=== PATIENT | female | born 1995 | race Caucasian/White ===

== ENCOUNTER → 2017-08-11 11:54 | Outpatient (CLI) | payer OTHER, SELFPAY ==
[2017-08-11 16:38] LABS: Chlamydia Trachomatis by PCR Negative (Negative); Neisserai gonorrhoeae by PCR Negative (Negative); Probe Check PASS; Sample Adequacy Control PASS; Specimen Processing Control PASS
== END ==
PROVIDERS: Visit Provider Obstetrics & Gynecology
DX: Z11.3 Encounter for screening for infections with a predominantly sexual mode of transmission (principal)
CPT/HCPCS: 87491; 87591

== ENCOUNTER 2018-08-19 09:05 | Inpatient (IN) | payer MEDICAID, SELFPAY ==
[2017-08-11 08:25] VITALS: BMI 26.5
[2018-08-19] MEDS: 0.9% Saline Lock 10 ML Syringe IV ×2 (09:45→18:05)
[2018-08-19 10:21] LABS: Hematocrit 39.1 % (37-47); Hemoglobin 13.5 g/dl (12.0-15.0); Mean Corp Hgb Conc 34.5 g/gl (32-36); Mean Corpuscular Hgb 31.5 pg (27.0-32.0); Mean Corpuscular Volume 91.4 fL (81-99); Mean Platelet Vol. 11.2 fl (6.2-12.0); Platelet Count 178 K/mm3 (150-450); RBC Distribution Width CV 12.3 % (11.6-14.6); RBC Distribution Width SD 40.5 fl (35.1-43.9); Red Blood Count 4.28 M/mm3 (4.2-5.4)
[2018-08-19 10:23] LABS: Scan Indicated on CBC? Y/N NO
[2018-08-19 10:40] LABS: Amphetamine Urine VISTA NEGATIVE (<1000 ng/mL); Barbiturate Urine VISTA NEGATIVE (< 200 ng/mL); Benzodiazepine Urine VISTA NEGATIVE (< 200 ng/mL); Cocaine Urine VISTA NEGATIVE (< 300 ng/mL); Ecstacy Urine VISTA NEGATIVE (< 500 ng/mL); Methadone Urine VISTA NEGATIVE (< 300 ng/mL); PCP Urine VISTA NEGATIVE (< 25 ng/mL); THC Urine VISTA NEGATIVE (< 50 ng/mL); Vista UDS pH Range 7
[2018-08-19 11:06] VITALS: BMI 34.0
--- NOTE | 2018-08-19 12:42 | PCM.HP.OB ---
- Problem List (1) Rh negative state in antepartum period Status: Chronic (2) History of marijuana use Status: Chronic (3) Echogenic focus of heart of fetus affecting antepartum care of mother, single gestation Status: Resolved History Date of Admission: 08/19/18 Final SONIA: 08/18/18 Final SONIA Source: [place] <20 weeks Gestational age: 40 Weeks and 1 Days History of this : This is a 23 year-old, G [1], P [0], at 40 weeks gestational age presenting to labor reporting regular strong contractions since last night, reports now contractions q 4-5 minutes and strong downward pressure. Patient at admission per nursing exam was /-2 with BBOW. Patient's care was unremarkable, started at 5 weeks x 14 visits. Medical History: Medical History (Last Updated 08/11/17 @ 08:28 by Tisha Mckenna) Asthma J45.909 Surgical History: Surgical History (Last Updated 08/11/17 @ 08:29 by Tisha Mckenna) History of appendectomy Z98.890, Z90.49 History of tonsillectomy and adenoidectomy Z98.890 Allergies Sulfa (Sulfonamide Antibiotics) Allergy (Verified 05/31/14 15:02) Unknown Home Medications: Home Medications Vits [Prenatabs FA] 1 tablet PO DAILY 08/19/18 Smoking Status: Never smoker Alcohol: None Number of Fetus(es): 1 Heart Tracin by auscultation, no decels heard during or after contraction. Patient had Category I FHT on admission to hospital. TOCO Analysis: Ctx palpable moderate to strong 4-5 minutes, lasting 1 minute in length History Past Pregnancies: Past Pregnancies Delivery Date Name GA/Weeks Outcome Route Weight Infant Gender Labor Length Anesthesia Delivery Location Provider FOB Labs: GBS = Neg, Urine Tox + cannabinoids in 1st trimester - negative on admission to hospital, 1 hour GCT = 81, Trich = Neg, GC/CT = Neg/Neg, Syphilis = NR, Rubella = Immune, HepBsAg = Neg, HIV = NR, CF Screen= Neg, Urine Culture = Neg, Pap = Neg, CBC = WNL x 2 Expected Delivery Method: Spontaneous Vaginal Describe any other labor & delivery plans:: Planning NCB Number of Visits: 14 Review of Systems Constitutional: Denies: Chills, Fever, Weight Change HEENT: Denies: Head Aches, Sinus Congestion, Sinus Drainage Cardiovascular: Denies: Chest Pain, Palpitations Respiratory: Denies: Cough, Shortness of breath at rest, Sputum production Gastrointestinal: Denies: Abdominal Pain, Nausea, Vomiting Genitourinary: Denies: Dysuria Gynecological: Denies: Vaginal bleeding, Vaginal discharge, Vaginal itching Musculoskeletal: Denies: Joint Pain, Joint Tenderness Skin: Denies: Rash, Wounds Neurological: Denies: Numbness, Tingling, Focal weakness Psychiatric: Denies: Anxiety, Depression, Homicidal Ideations, Suicidal Ideations Hematologic/ Lymphatic: Denies: Easy Bruising, Easy Bleeding Physical Exam Vitals: See Nursing Note - Normotensive and Afebrile General: Alert, Oriented x3, No apparent distress HEENT: Atraumatic, Normocephalic. Negative for: Thyromegaly, Lymphadenopathy Cardiovascular: Regular rate, Regular Rhythm Lungs: Normal air movement Abdomen: Soft, Non Tender, Gravid, Appropriate for Gestational Age - EFW = 8# Neurological: Deep Tendon Reflexes 2+/4 and Symmetrical, Neuro grossly intact RELIGION INSTRUCTOR: Normal external genitalia. Negative for: Vulvar lesions Estimated gestational size: Appropriate for gestational size Presentation: Cephalic - ROP by Jose Ramon's and Asynclitic Cervix Dilation (cm): 6 - IBOW Station: -2 Effacement (%): 90 Assessment/Plan All Active Problems (Last Updated 08/11/17 @ 08:28 by Tisha Mckenna) Echogenic focus of heart of fetus affecting antepartum care of mother, single gestation (Resolved) This is a 23 year-old, G [1], P [0], at 40 weeks gestational age, Active Labor, Category I FHT P: 1) Expectant Management 2) Dr. Yepez OB back-up aware of admission and is in agreement of plan 3) Reassess cervix PRN with change in maternal or status Violeta Villa APRN-ANETA
--- NOTE | 2018-08-19 16:43 | PN.OBGYN_ITS ---
Subjective: Patient laboring well, reports ctx are intensifying and getting longer. Patient requests SVE at this time. Discussed option for AROM also at this time if minimal cervical change noted from last exam. Objective: FHT baseline 125, moderate variability, + accels, no decels noted Ctx q 2-5 minutes, palpate moderately strong SVE = unchaged, AROM clear fluid. SVE = 7/90/-1 after AROM - Physical Exam General: Alert, Oriented x3, Cooperative HEENT: Atraumatic, Normocephalic Neck: Supple Lungs: Normal air movement Cardiovascular: Regular rate, Regular Rhythm Abdomen: Soft, Non Tender, Gravid Extremities: No edema, Capillary Refill Less than 3 Seconds Skin: No rashes, No breakdown Musculoskeletal: No Tenderness to Palpation of Joints or Extremities Neurological: Cranial nerves II-XII grossly intact Psych/Mental Status: Normal Affect, Appropriate Weight: 192 lb 0.362 oz Body Mass Index (BMI) 34.0 Laboratory Tests Past 24 Hrs 08/19/18 08/19/18 08/19/18 09:40 09:45 09:45 WBC 13.0 H RBC 4.28 Hgb 13.5 Hct 39.1 MCV 91.4 MCH 31.5 MCHC 34.5 RDW 12.3 RDW Differential 40.5 Plt Count 178 MPV 11.2 Urine Opiates Screen NEGATIVE Urine Methadone Screen NEGATIVE Ur Barbiturates Screen NEGATIVE Ur Phencyclidine Scrn NEGATIVE Ur Amphetamines Screen NEGATIVE U Methamphetamin-MDMA NEGATIVE U Benzodiazepines Scrn NEGATIVE Urine Cocaine Screen NEGATIVE U Cannabinoids Screen NEGATIVE Ur Drug Screen Comment Blood Type O NEGATIVE Antibody Screen NEGATIVE Medical Necessity - Tobacco Use Smoking Status: Never smoker Assessment/Plan All Active Problems (Last Updated 08/11/17 @ 08:28 by Tisha Mckenna) Echogenic focus of heart of fetus affecting antepartum care of mother, single gestation (Resolved) 23 y/o @ 40+1 weeks, Category I FHT, Transition Stage of Labor P: 1) Encourage PO hydration and position changes 2) Dr. Yepez updated of patient status 3) Anticipate Violeta Villa COSTUME SHOP MANAGER-CNM
[2018-08-19] MEDS: Lactated Ringers 1,000 ML 50 ML IV (18:07)
--- NOTE | 2018-08-19 18:12 | PCM.PN.OB ---
Subjective: Patient grimacing and vocalizing during contractions. Requesting an epidural at this time. Patient and her family report that contractions have gotten more regular and closer together and that they feel back to back. Patient also reporting more pelvic pressure currently, requesting repeat vaginal exam at this time. Objective: FHT baseline 120, moderate variability, + accels, occasional variable decels Ctx q 2-3 minutes, palpate strong to contractions SVE = 7/90/0, JUANY by Jose Ramon's and SVE exam - Physical Exam General: Alert, Oriented x3, Cooperative Lungs: Normal air movement Cardiovascular: Regular rate, Regular Rhythm Abdomen: Soft, Non Tender, Gravid - Baby now JUANY by Jose Ramon's Extremities: No edema, Capillary Refill Less than 3 Seconds Skin: No rashes, No breakdown Musculoskeletal: No Tenderness to Palpation of Joints or Extremities Neurological: Cranial nerves II-XII grossly intact, Deep Tendon Reflexes 2+/4 and Symmetrical Psych/Mental Status: Normal Affect, Appropriate Weight: 192 lb 0.362 oz Body Mass Index (BMI) 34.0 Laboratory Tests Past 24 Hrs 08/19/18 08/19/18 08/19/18 09:40 09:45 09:45 WBC 13.0 H RBC 4.28 Hgb 13.5 Hct 39.1 MCV 91.4 MCH 31.5 MCHC 34.5 RDW 12.3 RDW Differential 40.5 Plt Count 178 MPV 11.2 Urine Opiates Screen NEGATIVE Urine Methadone Screen NEGATIVE Ur Barbiturates Screen NEGATIVE Ur Phencyclidine Scrn NEGATIVE Ur Amphetamines Screen NEGATIVE U Methamphetamin-MDMA NEGATIVE U Benzodiazepines Scrn NEGATIVE Urine Cocaine Screen NEGATIVE U Cannabinoids Screen NEGATIVE Ur Drug Screen Comment Blood Type O NEGATIVE Antibody Screen NEGATIVE Medical Necessity - Tobacco Use Smoking Status: Never smoker Assessment/Plan All Active Problems (Last Updated 08/11/17 @ 08:28 by Tisha Mckenna) Echogenic focus of heart of fetus affecting antepartum care of mother, single gestation (Resolved) 23 y/o @ 40+1 weeks, Transition Stage of Labor, Category I-II FHT P: 1) Continue present management 2) Epidural on request - encourage position changes and PO hydration at this time while IV fluid bolus infuses 3) Anticipate Violeta Villa APRN-ANETA
[2018-08-19] MEDS: fentaNYL-bupivacaine (epidural) 100 ML BAG EPIDURAL ×2 (19:00→23:06)
--- NOTE | 2018-08-19 20:09 | PCM.PROGNOTE ---
Subjective: Patient is comfortable with her epidural. She reports no issues at this time. Desires a repeat cervical exam now. Objective: FHT baseline 125, moderate variability, early decels noted with most contractions. Rare variable decel also noted. + accels. Ctx q 2-3 minutes, strong to palpation, lasting 60-90 seconds long SVE = 9/95/0 - Physical Exam General: Alert, Oriented x3, Cooperative Lungs: Normal air movement Abdomen: Soft, Non Tender, Gravid Extremities: No edema Neurological: Cranial nerves II-XII grossly intact, Deep Tendon Reflexes 2+/4 and Symmetrical Psych/Mental Status: Normal Affect, Appropriate Weight: 192 lb 0.362 oz Body Mass Index (BMI) 34.0 Laboratory Tests Past 24 Hrs 08/19/18 08/19/18 08/19/18 09:40 09:45 09:45 WBC 13.0 H RBC 4.28 Hgb 13.5 Hct 39.1 MCV 91.4 MCH 31.5 MCHC 34.5 RDW 12.3 RDW Differential 40.5 Plt Count 178 MPV 11.2 Urine Opiates Screen NEGATIVE Urine Methadone Screen NEGATIVE Ur Barbiturates Screen NEGATIVE Ur Phencyclidine Scrn NEGATIVE Ur Amphetamines Screen NEGATIVE U Methamphetamin-MDMA NEGATIVE U Benzodiazepines Scrn NEGATIVE Urine Cocaine Screen NEGATIVE U Cannabinoids Screen NEGATIVE Ur Drug Screen Comment Blood Type O NEGATIVE Antibody Screen NEGATIVE Medical Necessity - Tobacco Use Smoking Status: Never smoker Assessment/Plan All Active Problems (Last Updated 08/11/17 @ 08:28 by Tisha Mckenna) Echogenic focus of heart of fetus affecting antepartum care of mother, single gestation (Resolved) 23 y/o @ 40+1 weeks, Transition Stage of Labor, Category II FHT 1) Anticipate 2) Encourage position changes 3) Dr. Yepez updated on patient status Violeta Villa APRN-ANETA
--- NOTE | 2018-08-19 21:49 | PCM.PN.OB ---
Subjective: Patient remains comfortable with epidural. More frequent variable decels noted - decision made to recheck cervix at this time. Objective: FHT baseline 120, moderate variability, + accels, early decels and occasional moderate variable decels with ctx Ctx q 2-5 minutes, palpate moderately strong SVE = 10/100/0 to +1 - Physical Exam General: Alert, Oriented x3 Lungs: Normal air movement Abdomen: Soft, Non Tender Extremities: No edema Weight: 192 lb 0.362 oz Body Mass Index (BMI) 34.0 Laboratory Tests Past 24 Hrs 08/19/18 08/19/18 08/19/18 09:40 09:45 09:45 WBC 13.0 H RBC 4.28 Hgb 13.5 Hct 39.1 MCV 91.4 MCH 31.5 MCHC 34.5 RDW 12.3 RDW Differential 40.5 Plt Count 178 MPV 11.2 Urine Opiates Screen NEGATIVE Urine Methadone Screen NEGATIVE Ur Barbiturates Screen NEGATIVE Ur Phencyclidine Scrn NEGATIVE Ur Amphetamines Screen NEGATIVE U Methamphetamin-MDMA NEGATIVE U Benzodiazepines Scrn NEGATIVE Urine Cocaine Screen NEGATIVE U Cannabinoids Screen NEGATIVE Ur Drug Screen Comment Blood Type O NEGATIVE Antibody Screen NEGATIVE Medical Necessity - Tobacco Use Smoking Status: Never smoker Assessment/Plan All Active Problems (Last Updated 08/11/17 @ 08:28 by Tisha Mckenna) Echogenic focus of heart of fetus affecting antepartum care of mother, single gestation (Resolved) 23 y/o @ 40+1 weeks, Second Stage of Labor P: 1) Start pushing with patient at this time 2) Anticipate Violeta Villa APRN-RAFAM
[2018-08-19] MEDS: Oxytocin 30 units/NS 500 ml 30 UNITS/500 ML IV.SOLN 334 UNITS IV (23:40)
--- NOTE | 2018-08-20 00:07 | CPS ---
Critical results for Cord ABG read to CLARISSA Colon.
[2018-08-20] MEDS: Methylergonovine 0.2 MG/ML Ampul IM (00:08)
[2018-08-20] MEDS: Oxytocin 30 units/NS 500 ml 30 UNITS/500 ML IV.SOLN 167 UNITS IV (00:10)
--- NOTE | 2018-08-20 00:39 | PCM.OB.VAG ---
- Problem List (1) Rh negative state in antepartum period Status: Chronic (2) History of marijuana use Status: Chronic (3) Echogenic focus of heart of fetus affecting antepartum care of mother, single gestation Status: Resolved Vaginal Delivery Maternal Presentation: Active Labor Amniotic Membrane Rupture Type: Artificial Amniotic Fluid Description: Clear - terminal meconium noted after delivery Final SONIA: 08/18/18 Gestational age: 40 Weeks and 2 Days doctor who attended delivery (if requested by OB): Rafaela Collier Date of Procedure: 08/19/18 Pre-Operative Diagnosis: Active Labor Post-Operative Diagnosis: Viable Girl, Shoulder Dystocia Anesthesiologist: Erna Mullen Type of Anesthesia: Epidural Description of Procedure: Patient found to be complete/+1. Trial of pushing started and patient pushed well to . head delivered 2332 and delay of shoulders and turtle sign noted. At time of head delivery meconium noted behind head and loose nuchal cord noted. Additional personnel and pediatric physician called to bedside in anticipation of shoulder dystocia and due to meconium stained fluid respectively. See Shoulder Dystocia delivery summary. shoulder and body delivered 1 and 1/2 minute after delivery of head. Infant head initially delivered OA and then restituted LOT to OP to ROT and finally JUANY. Infant somersaulted through cord. initially floppy at time of delivery with poor respiratory effort. Mouth and nose bulb suctioned. Umbilical cord clamped and cut and infant handed off to awaiting pediatric team. Apgars 6 and 7. weight pending. Cord gases sent and Cord blood sample for known Rh Negative status collected. Placenta then delivered by maternal effort intact via Murray mechanism. Placenta intact with 3VC, placental triage WNL. FF to massage @ umbilicus, 3rd stage IV pitocin given per protocol for active management of the 3rd stage. Upon inspection of vaginal vault, 1st degree Rt. labial and periurethral lacerations repaired in the usual fashion using 3-0 rapide suture under epidural analgesia. During repair, steady bloody trickle noted and uterus slightly boggy. Methergine 0.25mg IM given to achieve hemostasis. Total EBL = 350cc. Sponge and needle count correct. Vaginal sweep negative. and bonding initiated. Dr. Yepez notified of delivery. Violeta Villa STUCCO LABORER-CNM Presentation: Vertex, JUANY - Head delivered OA, restituted LOT --> OP --> ROT --> JUANY (360 degrees) Placental Delivery Description: Spontaneous Placenta Disposition: [facility] Cord Vessel Description: 3 Vessels Nuchal Cord Compression: Without compression Cord Gases drawn per routine: ABG, VBG Cord Entanglement: Around neck x 1, loose Estimated Blood Loss: 350cc A gender: Female (1 minute): 6 (5 minute): 7 Episiotomy Description: None Laceration: Periurethral Extnsion/lac, 1st degree Medications given after delivery: IV Pitocin, IM Methergin Complications: - - Shoulder Dystocia
--- NOTE | 2018-08-20 00:43 | OP.PCM_ITS ---
- Problem List (1) Rh negative state in antepartum period Status: Chronic (2) History of marijuana use Status: Chronic (3) Echogenic focus of heart of fetus affecting antepartum care of mother, single gestation Status: Resolved Vaginal Delivery Maternal Presentation: Active Labor Amniotic Membrane Rupture Type: Artificial Amniotic Fluid Description: Clear - terminal meconium noted after delivery Final SONIA: 08/18/18 Gestational age: 40 Weeks and 2 Days doctor who attended delivery (if requested by OB): Rafaela Collier Date of Procedure: 08/19/18 Pre-Operative Diagnosis: Active Labor Post-Operative Diagnosis: Viable Girl, Shoulder Dystocia Anesthesiologist: Erna Mullen Type of Anesthesia: Epidural Description of Procedure: Patient found to be complete/+1. Trial of pushing started and patient pushed well to . head delivered 2332 and delay of shoulders and turtle sign noted. At time of head delivery meconium noted behind head and loose nuchal cord noted. Additional personnel and pediatric physician called to bedside in anticipation of shoulder dystocia and due to meconium stained fluid resp ectively. See Shoulder Dystocia delivery summary. shoulder and body delivered 1 and 1/2 minute after delivery of head. Infant head initially delivered OA and then restituted LOT to OP to ROT and finally JUANY. Infant somersaulted through cord. Infant initially floppy at time of delivery with poor respiratory effort. Mouth and nose bulb suctioned. Umbilical cord clamped and cut and handed off to awaiting pediatric team. Apgars 6 and 7. weight pending. Cord gases sent and Cord blood sample for known Rh Negative status collected. Placenta then delivered by maternal effort intact via Murray mechanism. Placenta intact with 3VC, placental triage WNL. FF to massage @ umbilicus, 3rd stage IV pitocin given per protocol for active management of the 3rd stage. Upon inspection of vaginal vault, 1st degree Rt. labial and periurethral lacerations repaired in the usual fashion using 3-0 rapide suture under epidural analgesia. During repair, steady bloody trickle noted and uterus slightly boggy. Methergine 0.25mg IM given to achieve hemostasis. Total EBL = 350cc. Sponge and needle count correct. Vaginal sweep negative. and bonding initiated. Dr. Yepez notified of delivery. Violeta Villa SOLAR INSTALLATION CREW SUPERVISOR-CNM Presentation: Vertex, JUANY - Head delivered OA, restituted LOT --> OP --> ROT --> JUANY (360 degrees) Placental Delivery Description: Spontaneous Placenta Disposition: [facility] Cord Vessel Description: 3 Vessels Nuchal Cord Compression: Without compression Cord Gases drawn per routine: ABG, VBG Cord Entanglement: Around neck x 1, loose Estimated Blood Loss: 350cc Infant A gender: Female (1 minute): 6 (5 minute): 7 Episiotomy Description: None Laceration: Periurethral Extnsion/lac, 1st degree Medications given after delivery: IV Pitocin, IM Methergin Complications: - - Shoulder Dystocia
--- NOTE | 2018-08-20 01:08 | DCINST_ITS ---
Discharge Diet: No Restrictions Discharge Activity: Return to Normal Activity, May not drive while taking narcotic pain medications., May Shower May resume sexual activity in: 4-6 weeks Additional Activity Instructions:: Nothing in the vagina for 4-6 weeks. You may return to work/school in 6 weeks. Call your doctor if your incision/area has: Continuous Slow Oozing, Sudden Increased Bleeding, Increased Pain/ Swelling, Increased Redness, Foul Smelling Discharge Call your doctor if you observe: Fever of 101 or Higher, Inability to urinate, Inability to have a bowel movement, Using more than one pad per hour Additional Instructions: If you experience any of the following, contact your healthcare provider. * Bleeding that soaks a pad every hour for 2 hours * Fever 100.4 or higher * Unrelieved incision or abdominal pain * Swelling, redness, discharge or bleeding from your incision or episiotomy site * Your incision begins to separate * Problems urinating (including inability to urinate or burning while urinating). * Visual changes * Severe headache * Flu-like symptoms * Pain or redness in one of both of your breasts * Pain, warmth, tenderness or swelling in your legs, especially the calf area * Frequent nausea and vomiting * Symptoms of depression or anxiety If you experience any of the following, call 911 or go to the nearest Emergency Room. * Chest pain * Problems breathing * Seizure activity * Partial or complete paralysis of a body part, slurred speech, weakness or drooping of the face, or a sudden inability to walk or hold your balance Allergies/Adverse Reactions: Allergies Sulfa (Sulfonamide Antibiotics) Allergy (Verified 05/31/14 15:02) Unknown Medications to take at Discharge Vits [Prenatabs FA ] 1 tablet PO DAILY 08/19/18 Ibuprofen [Motrin] 600 mg PO Q6H PRN PRN tablet 08/20/18 Please Follow Up With: Violeta Villa CNM When: Call to make an appointment with your provider at 2 weeks and 6 weeks . Primary Care Physician: Care Physician,No Primary [Primary Care Provider] - Test Results: Test results from this visit will be discussed in further detail at your follow- up appointment, if applicable. Proposed Discharge Date: 08/21/18
[2018-08-20 04:24] VITALS: BP 124/60; PULSE 96; RESP 18; TEMP 36.6; O2SAT 96
[2018-08-20] MEDS: Ibuprofen 600 MG Tablet PO ×3 (04:28→17:08)
[2018-08-20 05:27] LABS: Chlamydia Trachomatis by PCR Negative (Negative); Neisserai gonorrhoeae by PCR Negative (Negative); Probe Check PASS; Sample Adequacy Control PASS; Specimen Processing Control PASS
--- NOTE | 2018-08-20 06:32 | PCM.PN.OB ---
Subjective: Patient sitting on edge of bed en route to bathroom at this time - she reports that she slept well throughout night. was taken to nursery for evaluation of low O2 saturation down to 80s. Patient otherwise denies any other issues at this time. Denies BOWLES, scotoma or dizziness. Denies issues with ambulation. Has had some initial difficulty with urination so she was straight cathed over night to empty bladder. Otherwise no other issues noted. Objective: Nipples without cracks or blisters, no erythema noted Abdomen NT x 4 quadrants, FF midline @ umbilicus trace edema in LE, negative calf tenderness BL trace labial edema, periurethral and labial laceration well-approximated small rubra lochia - Physical Exam General: Alert, Oriented x3, Cooperative Lungs: Normal air movement Abdomen: Non Tender, Non-Distended Extremities: No edema Neurological: Deep Tendon Reflexes 2+/4 and Symmetrical Psych/Mental Status: Normal Affect, Appropriate Vital Signs Temp Pulse Resp BP Pulse Ox 97.8 F 96 18 124/60 H 96 08/20/18 04:24 08/20/18 04:24 08/20/18 04:24 08/20/18 04:24 08/20/18 04:24 Oxygen Delivery Method Room Air Weight: 192 lb 0.362 oz Body Mass Index (BMI) 34.0 Intake and Output for Last 24 Hours 08/18/18 08/19/18 08/20/18 23:59 23:59 23:59 Intake Total 1500 / 1500 Output Total 300 / 300 Balance 1200 / 1200 Laboratory Tests Past 24 Hrs 08/19/18 08/19/18 08/19/18 09:40 09:45 09:45 WBC 13.0 H RBC 4.28 Hgb 13.5 Hct 39.1 MCV 91.4 MCH 31.5 MCHC 34.5 RDW 12.3 RDW Differential 40.5 Plt Count 178 MPV 11.2 Urine Opiates Screen NEGATIVE Urine Methadone Screen NEGATIVE Ur Barbiturates Screen NEGATIVE Ur Phencyclidine Scrn NEGATIVE Ur Amphetamines Screen NEGATIVE U Methamphetamin-MDMA NEGATIVE U Benzodiazepines Scrn NEGATIVE Urine Cocaine Screen NEGATIVE U Cannabinoids Screen NEGATIVE Ur Drug Screen Comment Chlam trachomat DNA PCR N.gonorrhoeae DNA (PCR) Blood Type O NEGATIVE Antibody Screen NEGATIVE 08/20/18 03:30 WBC RBC Hgb Hct MCV MCH MCHC RDW RDW Differential Plt Count MPV Urine Opiates Screen Urine Methadone Screen Ur Barbiturates Screen Ur Phencyclidine Scrn Ur Amphetamines Screen U Methamphetamin-MDMA U Benzodiazepines Scrn Urine Cocaine Screen U Cannabinoids Screen Ur Drug Screen Comment Chlam trachomat DNA PCR Negative N.gonorrhoeae DNA (PCR) Negative Blood Type Antibody Screen Medical Necessity - Tobacco Use Smoking Status: Never smoker Assessment/Plan All Active Problems (Last Updated 08/11/17 @ 08:28 by Tisha Mckenna) Echogenic focus of heart of fetus affecting antepartum care of mother, single gestation (Resolved) 23 y/o s/p with Shoulder Dystocia, PPD #1 P: 1) Encourage or pumping breastmilk if is not taking any by mouth 2) Continue PP orders 3) consult Violeta WOLF
[2018-08-20 08:45] VITALS: BP 113/64; PULSE 74; RESP 16; TEMP 36.7
[2018-08-20 13:25] VITALS: BP 127/63; PULSE 81; RESP 16; TEMP 37.1
--- NOTE | 2018-08-20 13:46 | CASEMGMT ---
Social Work Labor and Delivery Unit Date of Referral:?08/20/2018 Time of Referral:?0830 Date of Intervention:?08/20/2018 Time of Intervention:?1250 ? Referred by:?verbal notification by nursing staff; environmental geologist covering both [facility] and [facility] nurseries, Dr. Collier ? Reason for Referral:?first time mother, history of marijuana use, baby in SCN, assess for resource needs. ? ? History obtained from:?Medical record, patient/mother of baby (MOB).??This contract writer is the hospice social worker for hospital of delivery labor and delivery unit and for continuity of care of families on the [facility] also provides social work services to the [facility]. ? Household composition:?MOB and father of baby live in an apartment together. ?No reported safety concerns and plan to take baby zion Delvalle to this home. ? ? Patient's parent/guardian status:?MOB and father of baby (FOB) Senthil Marquez are both 23 and have been 2 years. ??MOB denies any form of abuse in this relationship. ?Adelia is the first child for both. ? ? Medical History:?MOB sought care starting at 5 weeks with adequate visits thereafter. ?MOB is G1, P0 to 1 after delivering Adelia. ??Adelia born with Apgars 6-7-9 at 1-5-10 minutes respectively. ??Baby girl Adelia Sprague was transferred to and admitted to [facility] due to respiratory distress, meconium delivery. ??Delivery complicated by shoulder dystocia. ?? ? Educational Status:??No indication of any issues with reading, writing, or learning comprehension issues.?? ? Health Care Coverage:?[place] medicaid for MOB and pending status for baby.? ? Financial Status:?FOB works at a [employer]. 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 ?MOB plans to return to work in the future. ? Infant Supplies:??Plans to use a pack-n-play with bassinet attachment, has a crib, car seat, clothes, diapers and wipes to get started. ?Plans to breast feed. ? ? Childcare/Caregiver(s):?MOB will be primary caregiver and FOB will help to supplement when home.?? ? Transportation:?MOB denies issues and reports the family just got a new car.?? ? Programs/Agencies Involved:?MOB had medicaid through [facility]. ??MOB reports had tried for WIC prior to lay off and made too much money. ?Reports intent to reapply now that baby is born. ??MOB denies any other agency involvement and declines referral to [facility]. ?Plans to use [facility] outpatient office in [place] for outpatient needs for baby. ?? ? Behavioral Health Issues:?MOB denies history of depression, anxiety, ADHD, or bipolar disorder. ?When asked about mood or anxiety issues during MOB reports no more than to be expected; denying any impact on functioning. ??No reports of any history of suicidal thoughts. ??MOB did have a depression screening during which was negative. ??Noted a family history in MOB's side of depression and anxiety. ?Noted that both MOB and FOB have a half brother with some form of Autism or Asperger. ???MOB denies any use of alcohol or drugs during . ?Record indicates MOB has history of social drinking a few times a month outside of . ??Also a history of marijuana use with last use being 12.02.2017. ??MOB reports has not used marijuana since realization of , that even quit smoking, and has not intent to restart use at this time and especially while breast feeding. ??MOB did have negative drug screen on 12-23-17 and 08.19.2018 at delivery. ???No drug screening noted on baby. ?? ? Family Stressors:?No reported social stressors shared or reported. ?MOB does admit that never wanted to have children but when found out was became excited. ?MOB reports having a baby is better than ever thought it would be. ?Admits to stress when baby had to come to the SCN, that this was hard but coping as knows can be with baby as much as wants to in the SCN. ? Support Systems:?MOB reports FOB is strongest support system, both practically and emotionally. ??MOB reports to have support from both sides of the family. ??FOB gets a week off of work and then MOB's mother will be at the home the following week to help MOB out with transition home. ?? ? Assessment Met with MOB at baby's bedside. ?MOB holding baby and working on . ?MOB attentive to baby, touching baby, smiling and gazing at baby. ?MOB appearing loving and gentle. ??MOB teary eyed a few times in conversation as talked about becoming a mom and feelings about having a baby now. ??MOB reports to have adequate support from family, denies any mood or anxiety issues at this time, reports to have all needed supplies for home going. ??MOB receptive to taking [facility] information and applications. ??MOB also accepted [facility] resources list and depression packet. ?Listened to education on depression including risk factors for such, reports to know about depression from reading up on literature during as well as read up on safe sleeping and shaken baby. ???MOB denies intent to restart marijuana and especially while . ? Plan MOB will discharge when medically ready. Baby to discharge home to parents when ready. MOB has support from family at home going, has been given resources for home going. ?? ? No other immediate social work needs indicated at this time but social work does remain available should needs arise prior to discharge.? -GABRIEL Orona, HIV CTS SPECIALIST
[2018-08-20] MEDS: Acetaminophen 500 MG Tablet 1000 MG PO (14:23)
[2018-08-20] MEDS: Dibucaine 30 GM Tube 1 APPLIC TOPICAL (14:24)
[2018-08-20 15:55] VITALS: BP 116/66; PULSE 90; RESP 16; TEMP 37.4
[2018-08-20 20:00] VITALS: BP 119/72; PULSE 72; RESP 16; TEMP 36.6
[2018-08-21] MEDS: Senna/Docusate Sodium 1 Tablet PO ×3 (00:26→17:21)
[2018-08-21 02:00] VITALS: BP 108/63; PULSE 68; RESP 18; TEMP 36.8
[2018-08-21] MEDS: Ibuprofen 600 MG Tablet PO ×2 (02:07→17:20)
[2018-08-21 08:00] VITALS: BP 126/77; PULSE 79; RESP 17; TEMP 36.7; O2SAT 100
--- NOTE | 2018-08-21 08:37 | PCM.PN.OB ---
Objective: No complaints - Physical Exam General: Alert, Oriented x3 Abdomen: Soft, Non Tender, Non-Distended - ff mid & below umb Extremities: No Calf Tenderness Vital Signs Temp Pulse Resp BP Pulse Ox 98.2 F 68 18 108/63 96 08/21/18 02:00 08/21/18 02:00 08/21/18 02:00 08/21/18 02:00 08/20/18 04:24 Oxygen Delivery Method Room Air Weight: 192 lb 0.362 oz Body Mass Index (BMI) 34.0 Intake and Output for Last 24 Hours 08/19/18 08/20/18 08/21/18 23:59 23:59 23:59 Intake Total 1500 / 1500 Output Total 300 / 300 1050 / 1050 Balance 1200 / 1200 -1050 / -1050 Medical Necessity - Tobacco Use Smoking Status: Never smoker Assessment/Plan All Active Problems (Last Updated 08/11/17 @ 08:28 by Tisha Mckenna) Echogenic focus of heart of fetus affecting antepartum care of mother, single gestation (Resolved) PPD#2 D/c home
[2018-08-21] MEDS: Acetaminophen 500 MG Tablet 1000 MG PO (14:45)
[2018-08-21 15:30] VITALS: BP 114/70; PULSE 89; RESP 17; TEMP 36.7; O2SAT 98
== END 2018-08-21 17:45 | disposition home or self-care (01) | DRG 560 ==
PROVIDERS: Advanced Practice Midwife; Admitting Provider Obstetrics & Gynecology; Referring Provider Obstetrics & Gynecology; Visit Provider Obstetrics & Gynecology
DX: O69.81X0 Labor and delivery complicated by cord around neck, without compression, not applicable or unspecified (principal); O66.0 Obstructed labor due to shoulder dystocia; Z3A.40 40 weeks gestation of pregnancy; Z37.0 Single live birth; O77.0 Labor and delivery complicated by meconium in amniotic fluid; O70.0 First degree perineal laceration during delivery
CPT/HCPCS: 59025; 59050; 80307; 85027; 86850; 86900; 87491; 87591; 99218; J7120; A4216; G0378

== ENCOUNTER 2021-08-27 20:40 | Outpatient (CLI) | payer BC, SELFPAY ==
[2021-08-27 21:00] VITALS: BP 126/82; PULSE 73; PULSE 93; TEMP 36.6; O2SAT 99
[2021-08-27 21:05] VITALS: BMI 32.9
[2021-08-27 22:59] VITALS: PULSE 72; O2SAT 99
--- NOTE | 2021-08-28 06:49 | OB.TRI.NOTE ---
HPI - General HPI Narrative DARÍO LIN, is a 26 F at 36.5 weeks gestation who presents for contractions. Patient stated she started feeling them yesterday and they progressed in frequency and pain. Denies any loss of fluid or vaginal bleeding. Positive movement. Maternal Data Information SONIA Calculator Estimated Delivery Date Method Current WG Current Estimate 09/20/21 Manual 36w 5d PFSH PFSH Medical History Asthma Home Medications Prenatabs FA 1 tab PO DAILY 08/19/18 [History Last Taken 08/26/21] famotidine [Pepcid] 10 mg PO DAILY 08/27/21 [History Last Taken 08/27/21 12:00] Allergy/AdvReac Type Severity Reaction Status Date / Time Sulfa (Sulfonamide Allergy Unknown Verified 05/31/14 15:02 Antibiotics) Family History Mother Depression Anxiety Lupus Rheumatoid arthritis Father Hypertension Emphysema, unspecified Brother Autism Grandmother Anxiety Depression Lupus Rheumatoid arthritis Absolute glaucoma Grandfather Cancer Lung Surgical History History of appendectomy History of tonsillectomy and adenoidectomy Social History Smoking Status: Never smoker second hand exposure: Yes alcohol intake: current alcohol intake frequency: a few times a month Alcohol type: beer and hard liquor substance use type: marijuana History Elective abortions Hx Para 0 Spontaneous abortions Hx # Term Pregnancies Ectopic pregnancies Hx # Pregnancies Multiple births # of living children ROS Eyes Eyes: Denies blurry vision Cardiovascular Cardiovascular: Reports none; Denies chest pain at rest, chest pain with activity or dizziness Respiratory/Chest Respiratory/Chest: Denies cough or dyspnea Gastrointestinal Gastrointestinal: Reports none and other; Denies diarrhea or vomiting Genitourinary Genitourinary: Denies dysuria Musculoskeletal Musculoskeletal: Reports none Integumentary Integumentary: Reports none; Denies rash Neurologic Neurologic: Denies dizziness, headache(s) or other visual disturbances Psychiatric Psychiatric: Reports none Physical Exam Const alert and no apparent distress General Appearance: cooperative Orientation / Consciousness: awake Exam Limitations: no limitations HEENT normocephalic Eyes General Eye: normal appearance of both eyes Neck full ROM Chest inspection of chest normal Resp normal respiratory effort and normal air movement Effort and Inspection: symmetric chest movement Auscultation: clear to auscultation bilaterally Cardio regular rate GI soft to palpation, non-tender and non-distended Inspection: and other Back/Spine normal ROM Extremity full ROM, normal capillary refill and no calf tenderness Skin no rashes or lesions noted Neuro oriented x3 and CN's II-XII intact bilaterally Psych mental status grossly normal NST FHR Rate Baby B Baseline: 125 Variability:: Moderate Accelerations:: 15 x 15 Decelerations:: None NST Reactive:: Yes FHR Category:: Category I Uterine Activity:: irregular Assessment & Plan (1) 36 weeks gestation of : (2) Uterine contractions: (3) Rh negative state in antepartum period: (4) History of shoulder dystocia: PLAN: CE /-3- no change after 2 hours of monitoring Cat. 1 tracing NST reactive Patient hydrated with PO D/C home with follow up in office Dr. Yepez notified
== END 2021-08-27 23:59 | disposition home or self-care (01) ==
LOC: WPOUT 20:58 → WP 21:00
PROVIDERS: Visit Provider Advanced Practice Midwife
DX: O47.03 False labor before 37 completed weeks of gestation, third trimester (principal); O66.0 Obstructed labor due to shoulder dystocia; Z3A.36 36 weeks gestation of pregnancy
CPT/HCPCS: 59025; 59050; 99218; G0378

== ENCOUNTER 2021-09-01 08:13 | Outpatient (CLI) | payer BC, SELFPAY ==
[2021-09-01 08:32] VITALS: BMI 33.2
[2021-09-01 08:37] VITALS: BP 110/67; PULSE 104; PULSE 92; TEMP 36.6; O2SAT 98
[2021-09-01 11:17] LABS: Group B Strep DNA By PCR Negative (Negative); Internal Control PASS; Probe Check PASS; Specimen Processing Control PASS
--- NOTE | 2021-09-01 11:26 | OB.TRI.NOTE ---
HPI - General HPI Narrative DARÍO LIN, is a 26 F who presentc/o Ctxs Maternal Data Information SONIA Calculator Estimated Delivery Date Method Current WG Current Estimate 09/20/21 Manual 37w 2d PFSH PFSH Medical History Asthma Home Medications Prenatabs FA 1 tab PO DAILY 08/19/18 [History Last Taken 08/26/21] famotidine [Pepcid] 10 mg PO DAILY 08/27/21 [History Last Taken 08/27/21 12:00] Allergy/AdvReac Type Severity Reaction Status Date / Time Sulfa (Sulfonamide Allergy Unknown Verified 05/31/14 15:02 Antibiotics) Family History Mother Depression Anxiety Lupus Rheumatoid arthritis Father Hypertension Emphysema, unspecified Brother Autism Grandmother Anxiety Depression Lupus Rheumatoid arthritis Absolute glaucoma Grandfather Cancer Lung Surgical History History of appendectomy History of tonsillectomy and adenoidectomy Social History Smoking Status: Never smoker second hand exposure: Yes alcohol intake: current alcohol intake frequency: a few times a month Alcohol type: beer and hard liquor substance use type: marijuana History Elective abortions Hx Para 0 Spontaneous abortions Hx # Term Pregnancies Ectopic pregnancies Hx # Pregnancies Multiple births # of living children NST FHR Rate Baby A Baseline: 130 Variability:: Moderate Accelerations:: 15 x 15 Decelerations:: None NST Reactive:: Yes FHR Category:: Category I Uterine Activity:: irreg ctxs Assessment & Plan (1) 37 weeks gestation of : (2) False labor after 37 completed weeks of gestation: PLAN: D/c home, f/u in the office or return or call prn
== END 2021-09-01 23:59 | disposition home or self-care (01) ==
LOC: WPOUT 08:18 → WP 08:19
PROVIDERS: Referring Provider Obstetrics & Gynecology; Visit Provider Obstetrics & Gynecology
DX: O47.1 False labor at or after 37 completed weeks of gestation (principal); Z3A.37 37 weeks gestation of pregnancy
CPT/HCPCS: 59025; 59050; 87081; 87653; 99218; G0378

== ENCOUNTER 2021-09-06 17:25 | Outpatient (CLI) | payer BC, SELFPAY ==
[2021-09-06 17:33] VITALS: BP 129/74; PULSE 114; TEMP 36.6
[2021-09-06 17:51] VITALS: BMI 30.6
[2021-09-06] MEDS: Ringers, Lactated 1,000 ML IV.SOLN. 1000 ML IV (18:25)
[2021-09-06 18:37] LABS: Absolute Lymphocyte Count 1.33 X10^3/uL (0.83-4.51); Absolute Neutrophil Count 4.8 X10^3/uL (2.0-7.7); Basophil# 0.03 X10^3/uL; Basophil% 0.4 % (0-1); Eosinophil# 0.05 X10^3/uL; Eosinophils% 0.7 % (0-5); Hematocrit 34.9 % (37-47); Hemoglobin 12.5 g/dL (12.0-15.0); Lymphocyte # 1.33 X10^3/ul (0.83-4.51); Lymphocyte % 18.6 % (19-41); Mean Corp Hgb Conc 35.8 g/dL (32-36); Mean Corpuscular Hgb 32.2 pg (27.0-32.0); Mean Corpuscular Volume 89.9 fL (81-99); Mean Platelet Vol. 10.9 fl (6.2-12.0); Monocyte# 0.86 X10^3/uL; NRBC Flagged by Analyzer 0 % (0-5); Neutrophil # 4.83 X10^3/uL (2.7-7.7); Neutrophil % 67.5 % (47-70); Platelet Count 164 K/mm3 (150-450); RBC Distribution Width CV 12.1 % (11.6-14.6); Red Blood Count 3.88 M/mm3 (4.2-5.4); White Blood Count 7.2 K/mm3 (4.4-11.0)
[2021-09-06 19:26] LABS: ALB/GLOB Ratio 0.7 RATIO (0.9-2.4); AST(SGOT) 27 U/L (15-37); Alanine Aminotransfer ALT/SGPT 31 U/L (13-56); Alkaline Phosphatase 158 U/L (45-117); Anion Gap 6 (5-15); BUN 5 mg/dL (7-18); Calcium,Total 9.2 mg/dL (8.5-10.1); Chloride 105 mmol/L (98-107); Creatinine, Serum 0.62 mg/dL (0.55-1.02); EST Glomerular Filtration Rate 123 mL/min (>60); Est Glom Filt Rate - Afr Amer 149 mL/min (>60); Estimated Creatinine Clearance 128.72 ml/min; Globulin 4.5 g/dL (2.2-4.2); Glucose 88 mg/dL (74-106); Potassium 3.7 mmol/L (3.5-5.1); Protein, Total 7.5 g/dL (6.4-8.2); Sodium Level 137 mmol/L (136-145)
[2021-09-06] MEDS: Oseltamivir Phosphate 75 MG Capsule PO (20:13)
--- NOTE | 2021-09-07 00:37 | OB.TRI.NOTE ---
HPI - General HPI Narrative DARÍO LIN, is a 26 F who presents with flu like symptoms, back pain, and possible ctx's. Her significant other was told her had influenza. She now has flu like symptoms and feels ill. Dehydrated as well. Now having back pain and possible ctx's. No vb, lof. +FM. Maternal Data Information SONIA Calculator Estimated Delivery Date Method Current WG Current Estimate 09/20/21 Manual 38w 1d PFSH PFSH Medical History Asthma Home Medications Prenatabs FA 1 tab PO DAILY 08/19/18 [History Last Taken 09/06/21] famotidine [Pepcid] 10 mg PO DAILY 08/27/21 [History Last Taken 09/06/21] Allergy/AdvReac Type Severity Reaction Status Date / Time Sulfa (Sulfonamide Allergy Unknown Verified 05/31/14 15:02 Antibiotics) Family History Mother Depression Anxiety Lupus Rheumatoid arthritis Father Hypertension Emphysema, unspecified Brother Autism Grandmother Anxiety Depression Lupus Rheumatoid arthritis Absolute glaucoma Grandfather Cancer Lung Surgical History History of appendectomy History of tonsillectomy and adenoidectomy Social History Smoking Status: Never smoker second hand exposure: Yes alcohol intake: current alcohol intake frequency: a few times a month Alcohol type: beer and hard liquor substance use type: marijuana History Elective abortions Hx Para 0 Spontaneous abortions Hx # Term Pregnancies Ectopic pregnancies Hx # Pregnancies Multiple births # of living children NST FHR Rate Baby A Baseline: 130 Variability:: Moderate Accelerations:: 15 x 15 Decelerations:: None NST Reactive:: Yes Uterine Activity:: irregular ctx's Assessment & Plan (1) 38 weeks gestation of : PLAN: NST reactive IVF bolus Labs Covid and flu swabs sent Patient reports a known flu contact and now having symptoms that started 1 day ago - start Tamiflu Cvx 2/t and unchanged on recheck after observation To follow up in office (2) Back pain affecting : (3) Flu-like symptoms:
== END 2021-09-06 23:59 | disposition home or self-care (01) ==
LOC: WPOUT 17:29 → WP 17:30
PROVIDERS: Referring Provider Obstetrics & Gynecology; Visit Provider Obstetrics & Gynecology
DX: O99.891 Other specified diseases and conditions complicating pregnancy (principal); M54.9 Dorsalgia, unspecified; Z20.828 Contact with and (suspected) exposure to other viral communicable diseases; Z3A.38 38 weeks gestation of pregnancy
CPT/HCPCS: 96374; 36415; 59025; 59050; 80053; 85025; 86850; 86900; 86901; 87426; 87804; 99218; J7120; G0378

== ENCOUNTER 2021-09-13 09:15 | Inpatient (IN) | payer BC, SELFPAY ==
[2021-09-13] VITALS (15 sets, daily range): BP systolic 92–128; BP diastolic 40–73; PULSE 58–99; RESP 16–18; TEMP 36.1–36.3; O2SAT 97–100; BMI 33.3
--- NOTE | 2021-09-13 | FALS_PTH ---
PATIENT: DARÍO LIN LOC: [facility] U#:[id number] AGE/SX: ROOM: WP008 RE09/13/[address]: Dr. Tonya Mazariegos MD : 1995 BED: 1 DIS: 09/15/2021 SPEC #: [id number] RECD: 09/13/21 13:48 STATUS: JACQUIE HOLGUIN #: [id number] HUSSEIN: 09/13/21 00:[address]: Tonya Mazariegos DEPT: SURGICAL PATHOLOGY RECD BY: Joel Skinner Tissues: Fallopian tube Procedures: Surgery Specimen Level II HEADER OPERATION: Tubal ligation PRE-OP DIAGNOSIS: Sterilization TISSUE SUBMITTED: Fallopian tubes, tag on right tube MICROSCOPIC DIAGNOSIS Bilateral fallopian tubes, salpingectomy: Bilateral fallopian tubes, no pathologic diagnosis. See comment. JENNIE:rancho 09/16/2021 COMMENT Focal decidual changes are noted in the right fallopian tube. MICROSCOPIC DESCRIPTION Slides are reviewed. GROSS DESCRIPTION Received in fixative is one container labeled with the patient's name and designated bilateral fallopian tubes, tag on right tube. The specimen consists of bilateral fallopian tubes including fimbrial ends. The right fallopian tube measures 10 cm in length and up 1 cm in diameter and left fallopian tube measures 8 cm in length and up 1 cm in diameter. Sections reveal unremarkable cut surfaces. Patient Case Coordinator sections are submitted in two cassettes as follows: 1 ? right fallopian tube, 2 ? left fallopian tube. / SJ:rg 09/13/2021 TC:4 CPT: 59086 x2
[2021-09-13] MEDS: Lactated Ringers 1,000 ML 999 ML IV (10:00)
[2021-09-13 10:14] LABS: Absolute Lymphocyte Count 2.23 X10^3/uL (0.83-4.51); Basophil# 0.03 X10^3/uL; Basophil% 0.3 % (0-1); Eosinophil# 0.08 X10^3/uL; Eosinophils% 0.8 % (0-5); Hematocrit 32.7 % (37-47); Hemoglobin 11.7 g/dL (12.0-15.0); Lymphocyte # 2.23 X10^3/ul (0.83-4.51); Lymphocyte % 22.4 % (19-41); Mean Corp Hgb Conc 35.8 g/dL (32-36); Mean Corpuscular Volume 86.5 fL (81-99); Monocyte# 0.57 X10^3/uL; Monocyte% 5.7 % (0-10); NRBC Flagged by Analyzer 0 % (0-5); Neutrophil # 6.98 X10^3/uL (2.7-7.7); Platelet Count 180 K/mm3 (150-450); Red Blood Count 3.78 M/mm3 (4.2-5.4)
--- NOTE | 2021-09-13 10:26 | NURSING ---
tattoos noted. scars noted on b/l arms.
[2021-09-13] MEDS: Acetaminophen 500 MG Tablet 1000 MG PO ×2 (10:32→22:44)
[2021-09-13] MEDS: Lactated Ringers 1,000 ML 150 ML IV (10:58)
[2021-09-13] MEDS: Sodium Citrate/Citric Acid 30 ML UDC PO (11:49)
[2021-09-13] MEDS: Cefazolin 2 GM in 0.9% Normal Saline 100 ML IV (11:55)
--- NOTE | 2021-09-13 11:59 | PCM.HP.OB ---
HPI - General General Date of Admission: 09/13/21 HPI Narrative DARÍO LIN, is a 26 F who presents for scheduled . Maternal Data Information SOINA Calculator Estimated Delivery Date Method Current WG Current Estimate 09/20/21 Manual 39w 0d PFSH [facility] Medical History (Updated 09/13/21 @ 13:[address] Tonya Mazariegos MD) 39 weeks gestation of Asthma Home Medications Prenatabs FA 1 tab PO DAILY 08/19/18 [History Last Taken 09/12/21] famotidine [Pepcid] 10 mg PO DAILY 08/27/21 [History Last Taken 09/12/21 10:00] Allergy/AdvReac Type Severity Reaction Status Date / Time Sulfa (Sulfonamide Allergy Unknown Verified 09/13/21 10:00 Antibiotics) Family History Mother Depression Anxiety Lupus Rheumatoid arthritis Father Hypertension Emphysema, unspecified Brother Autism Grandmother Anxiety Depression Lupus Rheumatoid arthritis Absolute glaucoma Grandfather Cancer Lung Surgical History History of appendectomy History of tonsillectomy and adenoidectomy Social History Smoking Status: Former smoker second hand exposure: Yes alcohol intake: current alcohol intake frequency: a few times a month Alcohol type: beer and hard liquor substance use type: marijuana History Elective abortions Hx Para 1 Spontaneous abortions Hx # Term Pregnancies Ectopic pregnancies Hx # Pregnancies Multiple births # of living children Vital Signs Vital Signs Vital Signs: 09/13/21 10:27 Temperature 97.1 F L Temperature Source Temporal Pulse Rate 99 Respiratory Rate 18 Blood Pressure 124/73 H Blood Pressure Mean 90 Blood Pressure Source Monitor Blood Pressure Position Semi-Fowlers Blood Pressure Location Left Arm Pulse Ox 98 Oxygen Delivery Method Room Air Weight Weight: 193 lb 12.581 oz Body Mass Index (BMI) 33.3 Physical Exam Const alert, oriented x3 and no apparent distress Chest inspection of chest normal Resp normal respiratory effort GI soft to palpation, non-tender and non-distended Inspection: gravid external exam normal Extremity normal to inspection and no calf tenderness Labs Labs Labs: Blood Type O NEGATIVE Antibody Screen NEGATIVE Hct 32.7 % (37-47) L Hgb 11.7 g/dL (12.0-15.0) L Chlamydia DNA (BETTINA) Negative (Negative) Neisseria gonorrhoeae DNA (BETTINA) Negative (Negative) Group B Strep DNA Negative (Negative) Rhogam given: No See [facility] prenatals Assessment & Plan (1) History of shoulder dystocia: (2) 39 weeks gestation of : COMMENT: @ 39 weeks PLAN: Admit to L&D MOD - counseled on R/B/A of delivery options d/t h/o shoulder dystocia. Patient elects to proceed with primary and informed consent signed in the office. Sterilization request - risks of regret & failure discussed and all questions answered. Plan for bilateral salpingectomy with . Routine care
--- NOTE | 2021-09-13 13:11 | EX.PCM.OBRPT ---
Maternal Data Information SONIA Calculator Estimated Delivery Date Method Current WG Current Estimate 09/20/21 Manual 39w 0d Details Operative Information Date of Procedure: 09/13/21 Pre-Operative Diagnosis: (1) History of shoulder dystocia (2) Sterilization request Post-Operative Diagnosis: Same Indications for : Desires elective sterilization Indications Narrative: The patient was taken to the operating room where spinal anesthesia was placed & found to be adequate. She was prepped and draped in the dorsal supine position with a leftward tilt. A Pfannenstiel skin incision was made approximately 2 cm above the symphysis pubis and carried through to the underlying fascia with the scalpel. The fascia was incised incised in the midline and extended laterally with the Quesada scissors. The rectus muscles were in the midline and the peritoneum was entered carefully and bluntly. The peritoneal incision was stretched and the bladder blade was inserted. Vesicouterine peritoneum was tented up, incised & then bladder flap created gently. The uterine incision was made in a low transverse fashion with the scalpel and extended superiorly and inferiorly with blunt dissection. The 's head was brought to the incision in the flexed position and delivered without difficulty. The head was gently guided to allow delivery of the anterior and posterior shoulders. The body then delivered with fundal pressure in the standard fashion. The 3VC cord was clamped and cut in delayed fashion. The infant was handed off to the waiting port warden. The placenta was delivered with fundal massage and gentle traction in the standard fashion. The uterus was exteriorized and cleared of clots and debris. The uterine incision was closed with #1 Vicryl suture in a running locked fashion. Monocryl suture was used in an imbricating fashion. The incision was examined and was found to be hemostatic. Attention was turned to the fallopian tubes to perform a bilateral salpingectomy. The right fallopian tube was grasped with the Ligasure, cauterized and cut. This proceed was repeated until the entire right fallopian tube was removed. The left fallopian tube was grasped with the Ligasure, cauterized and cut. This proceed was repeated until the entire left fallopian tube was removed. Both salpingectomy sites were examined & confirmed to be hemostatic. The uterus was carefully returned to the abdominal cavity. Again both salpingectomy sites were examined & confirmed to be hemostatic. Bertha was placed on the bilateral salpingectomy sites. After gently irrigating Bertha was placed over the uterine incision as some areas were denuded (but hemostatic). The peritoneum was closed with vicryl suture in running fashion The rectus muscle was examined and any bleeding was Bovie cauterized. The fascia was closed with PDS suture in a running standard fashion. The subcutaneous tissue was examining and any bleeding was Bovie cauterized. The subcutaneous tissue was reapproximated with interrupted sutures. The skin was closed in a subcuticular fashion by the RECRUITING ADMINISTRATOR while I was present in the labor & delivery unit. The remainder of the procedure was performed by me with assistance. All sponge, lap, and needle counts were correct. The patient was taken to her room for recovery in a stable condition. Classification: Scheduled Procedure Type: bilateral salpingectomy chief passenger ship steward/stewardess #1: Horacio Boone Type of Anesthesia: Spinal Antibiotic Given: Ancef 2 grams IV x1 Drain: Cardenas to straight drain Estimated Blood Loss: 800ml Fluids Replaced: 700ml Procedure Start Time: 12:20 Procedure Stop Time: 13:13 Findings Description of Procedure: Normal maternal uterus and adnexa Presentation: Positive for Vertex Amniotic Membrane Rupture Type: Artificial Amniotic Fluid Description: Clear Placental Delivery Description: Expressed Placenta Disposition: [facility] Specimen(s) Sent to Pathology: Bilateral fallopian tubes Cord Vessel Description: 3 Vessels Cord Entanglement: None A Gender: Male (Danny, weight = 8-7) (1 minute): 8 (5 minute): 9 Delayed Cord Clamping: Yes Complications Complications: None
[2021-09-13] MEDS: Oxytocin 30 units/NS 500 ml 30 UNITS/500 ML IV.SOLN 167 UNITS IV (13:30)
[2021-09-13 13:35] LABS: Pathology Specimen OB SEE PATHOLOGY REPORT
[2021-09-13] MEDS: Ketorolac 30 MG/ML Syringe IV ×2 (13:57→20:53)
--- NOTE | 2021-09-13 15:10 | CPS ---
Busy with nursing. left incentive for nursing to start
[2021-09-13] MEDS: Ondansetron 4 MG/2 ML Vial IV (16:13)
[2021-09-13] MEDS: proCHLORPERazine 10 MG/2 ML Vial IV (17:00)
[2021-09-13] MEDS: Lactated Ringers 1,000 ML 100 ML IV (17:06)
[2021-09-13] MEDS: 0.9% Saline Lock 10 ML Syringe IV (20:53)
[2021-09-14 00:42] VITALS: BP 105/55; PULSE 62; RESP 16; TEMP 36.3; O2SAT 97
[2021-09-14] MEDS: Enoxaparin 40 MG/0.4 ML Syringe SC (00:50)
[2021-09-14] MEDS: Ketorolac 30 MG/ML Syringe IV ×2 (02:43→09:32)
[2021-09-14] MEDS: Lactated Ringers 1,000 ML 100 ML IV (02:43)
[2021-09-14 04:00] VITALS: BP 103/55; PULSE 79; RESP 16; TEMP 36.2
[2021-09-14 06:08] LABS: Hematocrit 26.9 % (37-47); Hemoglobin 9.5 g/dL (12.0-15.0); Mean Corp Hgb Conc 35.3 g/dL (32-36); Mean Corpuscular Hgb 31.3 pg (27.0-32.0); Mean Corpuscular Volume 88.5 fL (81-99); Mean Platelet Vol. 10.6 fl (6.2-12.0); Platelet Count 123 K/mm3 (150-450); RBC Distribution Width CV 12.1 % (11.6-14.6); RBC Distribution Width SD 38.9 fl (35.1-43.9); Red Blood Count 3.04 M/mm3 (4.2-5.4); White Blood Count 9.7 K/mm3 (4.4-11.0)
[2021-09-14] MEDS: Acetaminophen 500 MG Tablet 1000 MG PO ×3 (06:11→18:56)
[2021-09-14 07:56] VITALS: BP 100/54; PULSE 72; RESP 16; TEMP 36.2; O2SAT 97
--- NOTE | 2021-09-14 08:32 | PCM.PN.OB ---
Subjective Subjective Doing well per patient and nursing staff. Ambulating and taking PO without difficulty. Voiding and passing flatus. Pain controlled. Denies headache, visual changes, chest pain, shortness of breath, leg pain or increased bleeding. Lochia normal. Objective Data Objective Data Vital Signs: Vital Signs Temp Pulse Resp BP Pulse Ox 97.1 F L 72 16 100/54 L 97 09/14/21 07:56 09/14/21 07:56 09/14/21 07:56 09/14/21 07:56 09/14/21 07:56 Oxygen Delivery Method Room Air Weight: 193 lb 12.581 oz Body Mass Index (BMI) 33.3 Intake & Output: Intake and Output for Last 24 Hours 09/12/21 09/13/21 09/14/21 23:59 23:59 23:59 Intake Total 2189 / 2189 1383.34 / 1383.34 Output Total 900 / 900 1500 / 1500 Balance 1289 / 1289 -116.66 / -116.66 Lab / Micro Data Result Diagrams: 09/14/21 06:00 Labs: Laboratory Results - last 24 hr 09/13/21 10:00: WBC 10.0, RBC 3.78 L, Hgb 11.7 L, Hct 32.7 L, MCV 86.5, MCH 31.0, MCHC 35.8, RDW Std Deviation 38.0, RDW Coeff of Thomas 12.0, Plt Count 180, MPV 11.0, Immature Gran % (Auto) 0.800, Neut % (Auto) 70.0, Lymph % (Auto) 22.4, [place] % (Auto) 5.7, Eos % (Auto) 0.8, Baso % (Auto) 0.3, Absolute Neuts (auto) 7.0, Absolute Lymphs (auto) 2.23, Nucleated RBC % 0 09/13/21 10:00: Blood Type O NEGATIVE, Antibody Screen NEGATIVE 09/14/21 06:00: WBC 9.7, RBC 3.04 L, Hgb 9.5 L, Hct 26.9 L, MCV 88.5, MCH 31.3, MCHC 35.3, RDW Std Deviation 38.9, RDW Coeff of Thomas 12.1, Plt Count 123 L, MPV 10.6 ROS Constitutional Constitutional: Reports systems reviewed and no addt'l complaints, except as documented; Denies headache(s) Eyes Eyes: Denies acute decrease in peripheral vision, blurry vision or change in vision ENT HEENT: Reports systems reviewed and no addt'l complaints, except as documented Cardiovascular Cardiovascular: Denies chest pain or dizziness Respiratory/Chest Respiratory/Chest: Denies cough, dyspnea, dyspnea on exertion, shortness of breath at rest or shortness of breath with exertion Gastrointestinal Gastrointestinal: Denies abdominal pain, diarrhea, nausea or vomiting Genitourinary Genitourinary: Denies abdominal discomfort Musculoskeletal Musculoskeletal: Denies limited range of motion Integumentary Integumentary: Reports systems reviewed and no addt'l complaints, except as documented Neurologic Neurologic: Reports systems reviewed and no addt'l complaints, except as documented Psychiatric Psychiatric: Reports systems reviewed and no addt'l complaints, except as documented Endocrine Endocrinology: Reports systems reviewed and no addt'l complaints, except as documented Hematologic/Lymphatic Hematologic/Lymphatic: Reports systems reviewed and no addt'l complaints, except as documented Allergic/Immunologic Allergic/Immunologic: Reports systems reviewed and no addt'l complaints, except as documented Physical Exam Const alert and oriented x3 General Appearance: cooperative Orientation / Consciousness: awake, oriented to person, oriented to place and oriented to time Exam Limitations: no limitations HEENT normocephalic Head and Scalp: normal to inspection, normocephalic and atraumatic Face and Sinus: normal facial exam Eyes General Eye: normal appearance of both eyes Neck full ROM Chest Chest: symmetrical chest wall rise Resp normal respiratory effort and normal air movement Auscultation: clear to auscultation bilaterally Cardio regular rate, regular rhythm, S1 normal heart sound, S2 normal heart sound, no murmurs, no rub, no gallops and no clicks GI normal to inspection, nondistended, normoactive bowel sounds and non-tender GI Narrative: Dressing dry and intact appearance of the vagina normal Bladder / Kidney Exam: no CVA tenderness Back/Spine normal ROM Extremity normal to inspection and full ROM Skin no rashes or lesions noted Neuro oriented x3, CN's II-XII intact bilaterally and moves all extremities Sensorium / Orientation: awake, alert and oriented to person Motor Exam: clonus absent Deep Tendon Reflexes: Rt Patellar (L4): 2+ and Lt Patellar (L4): 2+ Assessment & Plan (1) S/P primary low transverse : (2) History of marijuana use: (3) Echogenic focus of heart of fetus affecting antepartum care of mother, single gestation: (4) Rh negative state in antepartum period: (5) History of shoulder dystocia: PLAN: 1) Routine postoperative care 2) Vitals stable 3) Hgb 9.5, asymptomatic at this time. Will start PO iron 4) Pain management 5) Planning D/C home tomorow
[2021-09-14] MEDS: 0.9% Saline Lock 10 ML Syringe IV (09:33)
[2021-09-14] MEDS: Senna/Docusate Sodium 1 Tablet PO (10:16)
[2021-09-14] MEDS: Ferrous Sulfate 325 MG Tablet PO (12:47)
[2021-09-14 12:52] VITALS: BP 104/52; PULSE 72; RESP 14; TEMP 36.6; O2SAT 98
[2021-09-14 17:14] VITALS: BP 104/54; PULSE 72; RESP 16; TEMP 36.6; O2SAT 97
[2021-09-14] MEDS: Ibuprofen 600 MG Tablet PO ×2 (17:14→23:08)
[2021-09-14] MEDS: Famotidine 20 MG Tablet PO (17:47)
--- NOTE | 2021-09-14 19:51 | CM.ED ---
Addendum entered by Lori Jung 09/14/21 21:12: SW met with patient to explore patient's feeling of hopeless. Patient denied feeling hopeless or helplessness currently. Patient said that she answered that question yes as she had felt it within the past 2 weeks. Patient was the nb and the fob/ was in bed with her. Patient appeared content and happy and gave no evidence of hopelessness or helplessness at this time. Lori Jung [employer]ASH Original Note: SW Note Referral Source: sales representative metals Reason: History of Depression RN caring for patient noted that patient reports being anxious as after her first child that FOB, who is different from this FOB, left after 6 weeks and it was a total surprise to her. Patient knows that this circumstance is different but is anxious about it related to her past. Mom: Dee Dee PNC: [facility] Control: Tubal Ligation Baby: Danny : 09/13/21 Apgars : 8/9 Weight: 3820 grams Marketing Graphics Specialist: Dr. Vazquez Patient is breast feeding the nb MOB's other children: Elver, age 3, who is currently with her father. Housing: Patient resides in a house with the fob/, daughter Elver, herself and the nb. Family resides in [place] and reports that they came to [place] as we heard horror stories about [facility]. Patient and FOB said that they have been pleased with the care they have received. Transportation: Patient reports she has access to Transportation Supplies: Patient reports she has crib, carseat, bassinette, clothes, diapers and all nb supplies. Supports: Patient reports her mom, who lives in [place], is a support as well as her , Nicolas, and best friend. Education Level: Patient reports she graduated from high school. Patient said that she also graduated from the [employer] with programming in [employer]. Employment/Financial: Patient works at [employer] an has been at her current job for 2.5 years. Patient plans to take 8 weeks off. Patient said that she plans to use the same daycare that she uses for her daughter, Elver. FOB said the daycare is the best one around. Agency Involvement: Patient said that her 3 year old daughter Elver has [facility] but not any other services. Patient said that she does not qualify for WIC as she makes too much money. SW offered to make referral to WIC and patient declined. Patient reports no HMG, Legal or CSB involvement. Patient said that she currently sees Dr. Wells at [facility] every 2 weeks. Patient reports she sees a counselor every other week. Patient has been going to a counselor for 3-4 months and considers her a support. FOB: Nicolas Time Together: Together 3 years, 1 year Involved at : Yes Employment: [employer]. Patient said that his employer gave him 1 week off and I am trying for more. FOB reports this is his first child FOB MH/ AOD and Domestic Violence: Denied by FOB Maternal MH History: Patient said that her OB highly suggested she see a psychiatrist so she did telehealth with a psychiatrist. Patient said that the psychiatrist diagnosed her with acute anxiety and Major Depressive Disorder. Patient has never had psychiatric hospitalization. Patient reports she is currently not on medication. Patient said that she is not into medication and does not like meds and wants to do counseling. Patient said that she told her counselor she would call her to schedule an appointment. Patient currently sees her counselor every 2 weeks. Patient said that she was given Concerta in Kindergarten and she spit it out. Patient denied SI/HI. Patient scored 1 on PHQ2 and referenced feeing hopeless and helpless. CLARISSA Reno administered the PHQ9 and the patient had a score of 1. SW met with patient and her mom and FOB and patient was smiling and reactive. SW asked patient about past PPD. Patient said that she feels the depression was related to the child's father leaving her at 6 weeks. Patient said that she knows this is different and stated I think I will feel better after 6 weeks passes. FOB provided verbal support and physical support, holding patient's hand, while patient spoke about her previous post period. Patient was educated on PPD, Shaken Baby and Safe Sleeping. Patient reports no AOD. SW asked if FOB or patient had any concerns and they voiced no concerns. SW asked patient's mother and she voiced she has no concerns and they will do great. Plan:Home at discharge. SW provided patient with resources on PPD services including warm line, counselors and on line support. Lori ANTOINE
[2021-09-14 20:40] VITALS: BP 101/65; PULSE 16; RESP 16; TEMP 36.4; O2SAT 98
[2021-09-15 00:48] VITALS: BP 99/54; PULSE 65; RESP 16; TEMP 36.4; O2SAT 95
[2021-09-15] MEDS: Acetaminophen 500 MG Tablet 1000 MG PO ×2 (00:52→06:52)
[2021-09-15] MEDS: Ibuprofen 600 MG Tablet PO ×2 (05:01→11:07)
--- NOTE | 2021-09-15 09:55 | PN.OBGYN_ITS ---
Subjective Subjective Doing well per patient and nursing staff. Ambulating and taking PO without difficulty. Voiding and passing flatus. Pain controlled. , services for assistance. Denies headache, visual changes, chest pain, shortness of breath, leg pain or increased bleeding. Lochia normal. Objective Data Objective Data Vital Signs: Vital Signs Temp Pulse Resp BP Pulse Ox 97.5 F L 65 16 99/54 L 95 09/15/21 00:48 09/15/21 00:48 09/15/21 00:48 09/15/21 00:48 09/15/21 00:48 Oxygen Delivery Method Room Air Weight: 193 lb 12.581 oz Body Mass Index (BMI) 33.3 Intake & Output: Intake and Output for Last 24 Hours 09/13/21 09/14/21 09/15/21 23:59 23:59 23:59 Intake Total 2189 / 2189 1383.34 / 1383.34 Output Total 900 / 900 1910 / 1910 Balance 1289 / 1289 -526.66 / -526.66 Lab / Micro Data Result Diagrams: 09/14/21 06:00 ROS Constitutional Constitutional: Reports systems reviewed and no addt'l complaints, except as documented; Denies headache(s) Eyes Eyes: Denies acute decrease in peripheral vision, blurry vision or change in vision ENT HEENT: Reports systems reviewed and no addt'l complaints, except as documented Cardiovascular Cardiovascular: Denies chest pain or dizziness Respiratory/Chest Respiratory/Chest: Denies cough, dyspnea, dyspnea on exertion, shortness of breath at rest or shortness of breath with exertion Gastrointestinal Gastrointestinal: Denies abdominal pain, diarrhea, nausea or vomiting Genitourinary Genitourinary: Denies abdominal discomfort Musculoskeletal Musculoskeletal: Denies limited range of motion Integumentary Integumentary: Reports systems reviewed and no addt'l complaints, except as documented Neurologic Neurologic: Reports systems reviewed and no addt'l complaints, except as doc umented Psychiatric Psychiatric: Reports systems reviewed and no addt'l complaints, except as documented Endocrine Endocrinology: Reports systems reviewed and no addt'l complaints, except as documented Hematologic/Lymphatic Hematologic/Lymphatic: Reports systems reviewed and no addt'l complaints, except as documented Allergic/Immunologic Allergic/Immunologic: Reports systems reviewed and no addt'l complaints, except as documented Physical Exam Const alert and oriented x3 General Appearance: cooperative Orientation / Consciousness: awake, oriented to person, oriented to place and oriented to time Exam Limitations: no limitations HEENT normocephalic Head and Scalp: normal to inspection, normocephalic and atraumatic Face and Sinus: normal facial exam Eyes General Eye: normal appearance of both eyes Neck full ROM Chest Chest: symmetrical chest wall rise Resp normal respiratory effort and normal air movement Auscultation: clear to auscultation bilaterally Cardio regular rate, regular rhythm, S1 normal heart sound, S2 normal heart sound, no murmurs, no rub, no gallops and no clicks GI normal to inspection, nondistended, normoactive bowel sounds and non-tender GI Narrative: dressing dry and intact. appearance of the vagina normal Bladder / Kidney Exam: no CVA tenderness Back/Spine normal ROM Extremity normal to inspection and full ROM Skin no rashes or lesions noted Neuro oriented x3, CN's II-XII intact bilaterally and moves all extremities Sensorium / Orientation: awake, alert and oriented to person Motor Exam: clonus absent Deep Tendon Reflexes: Rt Patellar (L4): 2+ and Lt Patellar (L4): 2+ Assessment & Plan (1) S/P primary low transverse : PLAN: 1) Routine postoperative care 2) Vitals stable 3) Iron supplement 4) Declines oxycodone, will send Rx for Ibuprofen 5) Follow up in 1-2 weeks for incision check 6) support 7) D/C home
[2021-09-15] MEDS: Enoxaparin 40 MG/0.4 ML Syringe SC (09:56)
--- NOTE | 2021-09-15 09:59 | PCM.DC.SUM ---
Providers Date of Admission: 09/13/21 Primary Care Physician: ALIN REED Reason For Visit: PRIMARY C SECTION/CSECTION DELIVERY Diagnosis Discharge Diagnosis (1) S/P primary low transverse : Status: Acute Code(s): Z98.891 - History of uterine scar from previous surgery Medications at Discharge Home Medications Prenatabs FA 1 tab PO DAILY 08/19/18 acetaminophen 1,000 mg PO Q6H #0 tab 09/15/21 ferrous sulfate [FeroSul] 325 mg PO DAILY@1200 #30 tab 09/15/21 ibuprofen 600 mg PO Q6H #30 tab 09/15/21 Hospital Course Operations section Summary of Care Provided Hospital Course: Presented on 09/13/21 for Primary Low Transverse Section with bilateral Salpingectomy electively due to history of shoulder dystocia. course with acute blood loss anemia otherwise uncomplicated. Discharged home on postoperative day #2. Weight / BMI Weight Weight: 193 lb 12.581 oz Body Mass Index (BMI) 33.3 ABG / Lab / Microbiology Data Result Diagrams: 09/14/21 06:00 Meaningful Use Info Meaningful Use Diagnoses (Choose all that apply): None applicable Discharge Plan Admission Admit Date/Time: 09/13/21 09:15 Primary Reason for Your Visit: Section Attending Provider: Tonya Mazariegos Instructions Patient Instructions: After a Discharge Orders/Prescriptions Prescriptions: New acetaminophen 500 mg Tablet 1,000 mg PO Q6H Qty: 0 RF: 0 ferrous sulfate [FeroSul] 325 mg (65 mg iron) Tablet 325 mg PO DAILY@1200 Qty: 30 RF: 0 ibuprofen 600 mg Tablet 600 mg PO Q6H Qty: 30 RF: 0 Continued Prenatabs FA 1 TABLET tablet 1 tab PO DAILY RF: 0 Discontinued famotidine [Pepcid] 20 mg Tablet 10 mg PO DAILY RF: 0 Referrals / Follow Up: ALIN REED [Other] Tonya Mazariegos MD [STAFF PHYSICIAN] - (Follow up for incision check in 1-2 weeks and 6 weeks for visit) Disposition Disposition (needs filled in before D/C Order can be placed): Home, Self Care
[2021-09-15 10:01] VITALS: BP 114/72; PULSE 71; RESP 18; TEMP 36.6
== END 2021-09-15 12:00 | disposition home or self-care (01) | DRG 784 ==
PROVIDERS: Admitting Provider Obstetrics & Gynecology; Visit Provider Obstetrics & Gynecology
PROC: 10D00Z1 Extraction of Products of Conception, Low, Open Approach (ICD-10-PCS; CPT 59514; principal; 2021-09-13 11:45)
DX: O36.8390 Maternal care for abnormalities of the fetal heart rate or rhythm, unspecified trimester, not applicable or unspecified (principal); O99.324 Drug use complicating childbirth; D62 Acute posthemorrhagic anemia; F12.90 Cannabis use, unspecified, uncomplicated; O90.81 Anemia of the puerperium; O26.893 Other specified pregnancy related conditions, third trimester; Z67.41 Type O blood, Rh negative; Z37.0 Single live birth; Z3A.39 39 weeks gestation of pregnancy; Z87.59 Personal history of other complications of pregnancy, childbirth and the puerperium; Z87.891 Personal history of nicotine dependence; Z30.2 Encounter for sterilization
CPT/HCPCS: 59025; 59050; 85025; 85027; 86850; 86900; 86901; 88302; 99218; J7120; A4216; G0378; J2405